=== PATIENT | male | born 1990 | race Caucasian/White ===

== ENCOUNTER 2019-04-06 05:35 | Emergency (ER) | payer OTHER ==
[~2019-04-06] VITALS: Ht 160 cm; Wt 61.2 kg
[2019-04-06 05:43] VITALS: Ht 160 cm; Wt 61.2 kg
[2019-04-06 06:56] VITALS: BP 115/86
== END 2019-04-06 06:56 | disposition home or self-care (01) ==
LOC: ED 05:35
DX: S93.402A Sprain of unspecified ligament of left ankle, initial encounter (principal); W01.0XXA Fall on same level from slipping, tripping and stumbling without subsequent striking against object, initial encounter; Y93.89 Activity, other specified; Y92.89 Other specified places as the place of occurrence of the external cause; Y99.8 Other external cause status